=== PATIENT | female | born 1960 | race Caucasian/White ===

== ENCOUNTER 2019-09-18 08:15 | Day surgery (SDC) | payer BC ==
[~2019-09-18 08:15] MED LIST: Acetaminophen TAB* 325 MG PO PRN; Buffered Lidocaine 1% SYRIN* 1 ML/SYRINGE INTRADERM ONE
[2019-09-18] MEDS ORDERED: Povidone Iodine 5% OPTH* 30 ML BTL ONE (09:10)
[2019-09-18] MEDS ORDERED: Lidocaine 2% w/ EPI 1:200,000* 20 ML SDV VIAL ONE (09:10)
[2019-09-18] MEDS ORDERED: Phenylephrine OPHTH SOL 2.5%* 2 ML ONE (09:10)
[2019-09-18] MEDS ORDERED: Cyclopentolate 1% OPTH.SOL* 2 ML BTL ONE (09:10)
[2019-09-18] MEDS ORDERED: Ketorolac 0.5% OPHTH (NF) 0.5 % 5 ML BTL ONE (09:10)
[2019-09-18] MEDS ORDERED: Lidocaine 1% MPF ** 5 ML VIAL ONE (09:10)
[2019-09-18] MEDS ORDERED: Neomycin/Polymy/Dex OPTH.SUSP* MAXITROL 0.1% 5 ML ONE (09:10)
[2019-09-18] MEDS ORDERED: acetaZOLAMIDE TAB* 250 MG ONE (09:10)
[2019-09-18] MEDS ORDERED: Proparacaine 0.5% OPHTH.SOL* 15 ML BTL ONE (09:11)
[2019-09-18] MEDS ORDERED: fentaNYL* 50 MCG/ML 2 ML VIAL (100 MCG VIAL) ONE (10:18)
[2019-09-18] MEDS ORDERED: Midazolam* 1 MG/ML 2 ML VIAL (2 MG) ONE (10:18)
[2019-09-18 11:26] VITALS: BP 111/53
--- NOTE | 2019-09-18 15:24 | OP ---
DATE OF OPERATION: 09/18/2019 - [facility] DATE OF : 1960. SURGEON: Catrachito Hinton M.D. PREOPERATIVE DIAGNOSIS: Cataract right eye. POSTOPERATIVE DIAGNOSIS: Cataract right eye. OPERATIVE PROCEDURE: Extracapsular cataract extraction with intraocular lens implant right eye. DESCRIPTION OF PROCEDURE: The patient was brought to the operating room after being given 1/2% Alcaine with epinephrine drops in the preoperative area. The eye was prepped and draped in the usual sterile fashion. Sterile drape and eyelid speculum were placed. Again, topical 1/2% Alcaine with epinephrine was given. A paracentesis incision was made at the 9 o'clock position with the No.75 blade. Clear cornea incision 2.2 x 2.2-mm was created at the 12 o'clock position starting at the anterior limbus using the 2.2-mm keratome. The anterior chamber was irrigated with 0.4 mL of 1% non-preservative intracameral lidocaine and filled with DisCoVisc. A capsulorrhexis was completed using the cystotome and the Utrata forceps. Hydrodissection was performed with balanced salt solution. The lens nucleus was removed with the Phacoemulsification handpiece without incident. Cortex was removed with the irrigation-aspiration handpiece. The capsular bag was re-inflated using DisCoVisc and an SN60WF 6.5 implant was inserted with the shooter. The irrigation-aspiration handpiece was used to remove all residual DisCoVisc. The eye was refilled with balanced salt solution and the wound checked and found to be watertight. Topical Maxitrol drops were given. [id number]/[facility] #: [id number] [facility]
== END 2019-09-18 11:20 | disposition home or self-care (01) ==
LOC: OREAST 08:15
PROVIDERS: ATTEND Specialist
DX: H25.811 Combined forms of age-related cataract, right eye (principal); H44.23 Degenerative myopia, bilateral; E03.9 Hypothyroidism, unspecified; Z87.891 Personal history of nicotine dependence; F32.9 Major depressive disorder, single episode, unspecified
CPT/HCPCS: A9270-GY; J2250; J3010; V2632

== ENCOUNTER 2019-09-25 10:49 | Day surgery (SDC) | payer BC ==
[2019-09-25] MEDS ORDERED: Midazolam* 1 MG/ML 2 ML VIAL (2 MG) ONE (12:35)
[2019-09-25 14:07] VITALS: BP 111/61
[2019-09-25] MEDS ORDERED: Lidocaine 1% MPF ** 5 ML VIAL ONE (15:07)
[2019-09-25] MEDS ORDERED: Cyclopentolate 1% OPTH.SOL* 2 ML BTL ONE (15:07)
[2019-09-25] MEDS ORDERED: Phenylephrine OPHTH SOL 2.5%* 2 ML ONE (15:08)
[2019-09-25] MEDS ORDERED: Neomycin/Polymy/Dex OPTH.SUSP* MAXITROL 0.1% 5 ML ONE (15:08)
[2019-09-25] MEDS ORDERED: Ketorolac 0.5% OPHTH (NF) 0.5 % 5 ML BTL ONE (15:08)
[2019-09-25] MEDS ORDERED: Lidocaine 2% w/ EPI 1:200,000* 20 ML SDV VIAL ONE (15:08)
[2019-09-25] MEDS ORDERED: Proparacaine 0.5% OPHTH.SOL* 15 ML BTL ONE (15:08)
[2019-09-25] MEDS ORDERED: Povidone Iodine 5% OPTH* 30 ML BTL ONE (15:08)
--- NOTE | 2019-09-25 22:17 | OP ---
DATE OF OPERATION: 09/25/19 [facility] DATE OF : [birth year] SURGEON: Catrachito Hinton M.D. PREOPERATIVE DIAGNOSIS: Cataract, left eye. POSTOPERATIVE DIAGNOSIS: Cataract, left eye. OPERATIVE PROCEDURE: Extracapsular cataract extraction with intraocular lens implant, left eye. DESCRIPTION OF PROCEDURE: The patient was brought to the operating room after being given 1/2% Alcaine with epinephrine drops in the preoperative area. The eye was prepped and draped in the usual sterile fashion. Sterile drape and eyelid speculum were placed. Again, topical 1/2% Alcaine with epinephrine was given. A paracentesis incision was made at the 3 o'clock position with the No.75 blade. Clear cornea incision 2.2 x 2.2-mm was created at the 6 o'clock position starting at the anterior limbus using the 2.2-mm keratome. The anterior chamber was irrigated with 0.4 mL of 1% non-preservative intracameral lidocaine and filled with DisCoVisc. A capsulorrhexis was completed using the cystotome and the Utrata forceps. Hydrodissection was performed with balanced salt solution. The lens nucleus was removed with the Phacoemulsification handpiece without incident. Cortex was removed with the irrigation-aspiration handpiece. The capsular bag was re-inflated using DisCoVisc and an SN60WF 8.5 implant was inserted with the shooter. The irrigation-aspiration handpiece was used to remove all residual DisCoVisc. The eye was refilled with balanced salt solution and the wound checked and found to be watertight. Topical Maxitrol drops were given. [id number]/[facility] #: [id number] [facility]
== END 2019-09-25 13:56 | disposition home or self-care (01) ==
LOC: OREAST 10:49
PROVIDERS: ATTEND Specialist
DX: H25.812 Combined forms of age-related cataract, left eye (principal); H44.23 Degenerative myopia, bilateral; E03.9 Hypothyroidism, unspecified; F32.9 Major depressive disorder, single episode, unspecified
CPT/HCPCS: A9270-GY; J2250; V2632

== ENCOUNTER 2019-10-09 19:44 | Emergency (ER) | payer BC ==
--- NOTE | 2019-10-09 19:53 | ED ---
Abdominal Pain/Female - HPI Summary HPI Summary: Patient is a 59 y/o F presenting to the ED via EMS for a chief complaint of left flank abdominal pain that radiates to the lower back and began around 17: 00 on 10/09/19. Patient states that she was back home after a trip to [place] and was about to make pizza with her family when she suddenly felt left flank pain. She describes the pain as a constant cramping and sharp sensation that she rates as a 10/10 in severity. Prior to this episode of abdominal pain, she notes eating some pepperoni and drinking coffee. On EMS arrival, patient felt nauseous and was diaphoretic. Earlier in the day, patient states she had difficulty with urinary voiding and had a bowel movement that she describes as pale. Patient denies any fever, chills, chest pain, shortness of breath, bilateral LE edema, blood in the stool, hematuria, cough, or rhinorrhea. No aggravating or alleviating factors are reported. Recently, patient saw a homeopathic provider that did blood work and told her she had elevated folate levels. At that time, she was told she could possibly have an intestinal issue. Six years ago, patient reports changing her diet to exclude gluten and include raw and sprouted grains. PMHx is significant for appendicitis and thyroid problem for which she is on medication. PSHx is significant for cataract surgery and appendectomy. An allergy to Sulfa drugs is noted. - History of Current Complaint Stated Complaint: ABD PAIN PER EMS Hx Obtained From: Patient Onset/Duration: Sudden Onset, Still Present Timing: Constant Severity Initially: Severe Severity Currently: Severe Pain Intensity: 10 Pain Scale Used: 0-10 Numeric Location: Flank - Left Radiates: Yes Radiates to: Back - Lower Character: Sharp, Cramping Aggravating Factor(s): Nothing Alleviating Factor(s): Nothing Associated Signs and Symptoms: Positive: Diaphoresis, Back Pain - Lower, Nausea. Negative: Fever, Cough, Chest Pain, Blood in Stool Allergies/Adverse Reactions: Allergies Allergy/AdvReac Type Severity Reaction Status Date / Time bee venom protein (honey bee) Allergy Unknown Verified 10/09/19 19:53 Reaction Details Sulfa (Sulfonamide Allergy Rash Verified 10/09/19 19:53 Antibiotics) BANDAID Allergy Rash Uncoded 09/25/19 11:12 Home Medications: Home Medications Cholecalciferol (Vitamin D3) [Vitamin D3] 2,000 unit PO DAILY 10/09/19 [History Confirmed 10/09/19] L.acidoph,Paracasei, B.lactis [Probiotic] 1 cap PO DAILY 10/09/19 [History Confirmed 10/09/19] Liothyronine TAB* [Cytomel TAB*] 10 mcg PO QPM 10/09/19 [History Confirmed 10/09] Liothyronine TAB* [Cytomel TAB*] 15 mcg PO QAM 10/09/19 [History Confirmed 10/09] [place]-3/Dha/Epa/Fish Oil [Fish Oil 1,600 mg/5 ml Liquid] 10 ml PO DAILY [History Confirmed 10/09/19] Pancrelipase (NF) [Creon (NF)] 24,000 units PO TID WITH MEALS 10/09/19 [History Confirmed 10/09/19] Prasterone (Dhea)/Calcium Carb [Dhea] 10 mg PO DAILY 10/09/19 [History Confirmed 10/09/19] Vitamin E CAP* 400 unit PO DAILY 10/09/19 [History Confirmed 10/09/19] Zinc Amino Acid Chelate [Zinc] 50 mg PO DAILY 10/09/19 [History Confirmed ] PMH/Surg Hx/FS Hx/Imm Hx Previously Healthy: Yes Endocrine/Hematology History: Reports: Hx Thyroid Disease - UNDERACTIVE THYROID - ON MEDICATION FOR Cardiovascular History: Denies: Other Cardiovascular Problems/Disorders Respiratory History: Denies: Other Respiratory Problems/Disorders GI History: Reports: Hx Irritable Bowel, Other GI Disorders - HX OF HYPOGLYCEMIA , Appendicitis History: Denies: Other Problems/Disorders Musculoskeletal History: Reports: Hx Arthritis - HANDS,, Hx Tendonitis - RIGHT THUMB Denies: Other Musculoskeletal History Sensory History: Reports: Hx Cataracts - BILATERAL, Hx Contacts or Glasses - INSTRUCTS GIVEN Denies: Hx Legally Blind, Hx Deafness, Hx Hearing Aid Opthamlomology History: Reports: Hx Cataracts - BILATERAL, Hx Contacts or Glasses - INSTRUCTS GIVEN Denies: Hx Legally Blind EENT History: Denies: Hx Deafness Neurological History: Denies: Other Neuro Impairments/Disorders - Surgical History Surgical History: Yes Surgery Procedure, Year, and Place: CARPAL TUNNEL RELEASE BILATERAL; C-sections x2; appendectomy age 25. M[facility]ANOMA LEFT LEG Hx Anesthesia Reactions: No Infectious Disease History: Yes Infectious Disease History: Reports: Hx Hepatitis - Hep A as child - Family History Known Family History: Negative: Diabetes, Renal Disease - Social History Occupation: Unemployed Lives: With Family Alcohol Use: None Hx Substance Use: No Substance Use Type: Reports: None Hx Tobacco Use: Yes Smoking Status (MU): Former Smoker Amount Used/How Often: UP TO 1/2 PPD X 10 YEARS Have You Smoked in the Last Year: No Review of Systems Positive: Skin Diaphoresis. Negative: Fever, Chills Negative: Nasal Discharge Negative: Chest Pain Negative: Shortness Of Breath, Cough Positive: Abdominal Pain - Left flank, Nausea, Other - Positive pale bowel movement; negative blood in stool Positive: flank pain - Left, other - Positive difficulty with urinary voiding. Negative: hematuria Positive: Myalgia - Lower back. Negative: Edema - Bilateral LE All Other Systems Reviewed And Are Negative: Yes Physical Exam - Summary Physical Exam Summary: Constitutional: Well-developed, Well-nourished, Alert. (-) Distressed. Appears uncomfortable. Skin: Warm, Dry HENT: Normocephalic; Atraumatic Eyes: Conjunctiva normal Neck: Musculoskeletal ROM normal neck. (-) JVD, (-) Stridor, (-) Tracheal deviation Cardio: Rhythm regular, rate normal, Heart sounds normal; Intact distal pulses; The pedal pulses are 2+ and symmetric. Radial pulses are 2+ and symmetric. (-) Murmur Pulmonary/Chest wall: Effort normal. (-) Respiratory distress, (-) Wheezes, (-) Rales Abd: Soft, (-) Distension, (-) Guarding, (-) Rebound. Left flank tenderness, left mid-abdominal tenderness Musculoskeletal: (-) Edema. Positive left CVA tenderness Lymph: (-) Cervical adenopathy Neuro: Alert, Oriented x3 Psych: Mood and affect Normal Triage Information Reviewed: Yes Vital Signs Reviewed: Yes Procedures - Sedation Patient Received Moderate/Deep Sedation with Procedure: No Diagnostics - Laboratory Result Diagrams: 10/09/19 20:03 10/09/19 20:03 Lab Statement: Any lab studies that have been ordered have been reviewed, and results considered in the medical decision making process. - CT Abdomen/Pelvis CT CT Interpretation Completed By: Radiologist Summary of CT Findings: Abdomen/Pelvis CT IMPRESSION: 1. There is a 7 mm calculus in the proximal left ureter with mild left obstructive uropathy. 2. There is mild colonic diverticulosis without evidence for acute diverticulitis. Reviewed by Dr. Doshi. Abdominal Pain Fem Course/Dx - Course Course Of Treatment: Patient is a 59 y/o F presenting to the ED via EMS for a chief complaint of left flank abdominal pain that radiates to the lower back and began around 17:00 on 10/09/19. Patient states that she was back home after a trip to [place] and was about to make pizza with her family when she suddenly felt left flank pain. She describes the pain as a constant cramping and sharp sensation that she rates as a 10/10 in severity. Prior to this episode of abdominal pain, she notes eating some pepperoni and drinking coffee. On EMS arrival, patient felt nauseous and was diaphoretic. Earlier in the day, patient states she had difficulty with urinary voiding and had a bowel movement that she describes as pale. Patient denies any fever, chills, chest pain, shortness of breath, bilateral LE edema, blood in the stool, hematuria, cough, or rhinorrhea. Recently, patient saw a homeopathic provider that did blood work and told her she had elevated folate levels. PMHx is significant for appendicitis and thyroid problem for which she is on medication. PSHx is significant for cataract surgery and appendectomy. On exam, left flank tenderness, left mid-abdominal tenderness, positive left CVA tenderness, patient appears uncomfortable. In the ED course, patient was given Toradol 30 mg IV PUSH, morphine 4 mg IV, Zofran 4 mg IV, Percocet 2 tab PO, Flomax 0.4 mg PO, and IV fluids. Laboratory abnormal findings: MPV 10.6, creatinine 1.00, glucose 106, urine ketones 1+, and urine ascorbic acid present. Abdomen/Pelvis CT IMPRESSION: 1. There is a 7 mm calculus in the proximal left ureter with mild left obstructive uropathy. 2. There is mild colonic diverticulosis without evidence for acute diverticulitis. At 23:20, I discussed the patients case with Dr. Whitley who states the patient can be discharged if she is feeling better. Patient will be discharged with a diagnosis of kidney stones. Follow up with PCP in 1 day. - Diagnoses Provider Diagnoses: Kidney stones - Provider Notifications Discussed Care Of Patient With: Sly Whitley - At 23:20, I discussed the patients case with Dr. Whitley who states the patient can be discharged if she is feeling better. Time Discussed With Above Provider: 23:20 Discharge ED - Sign-Out/Discharge Documenting (check all that apply): Patient Departure - Discharge - Discharge Plan Condition: Stable Disposition: HOME Prescriptions: Ondansetron TAB* [Zofran 4 MG Tab*] 4 mg PO Q6H PRN #20 tab PRN Reason: Nausea oxyCODONE/Acetamin 5/325 MG* [Percocet 5/325 TAB*] 1 tab PO Q4H PRN #15 tab MDD 6 PRN Reason: Pain - Moderate Tamsulosin CAP* [Flomax CAP*] 0.4 mg PO DAILY #10 cap Patient Education Materials: Kidney Stones (ED) Print Language: CROATIAN Referrals: Mercedez MARTINEZ,Al Velazquez [Primary Care Provider] - Sly Whitley MD [Medical Doctor] - Additional Instructions: Follow-up with Dr. Whitley in the morning. - Billing Disposition and Condition Condition: STABLE Disposition: Home - Attestation Statements Document Initiated by Scribe: Yes Documenting Scribe: Venessa Melara Provider For Whom Scribe is Documenting (Include Credential): Pati Seaman MD Scribe Attestation: IVenessa, scribed for Pati Doshi MD on 10/10/19 at 0130. Scribe Documentation Reviewed: Yes Provider Attestation: The documentation as recorded by the Venesas zheng accurately reflects the service I personally performed and the decisions made by me, Pati Doshi MD Status of Scribe Document: Viewed
[2019-10-09] MEDS ORDERED: Morphine 4 MG/ML VIAL (1 ml) 4 MG/ML VIAL IV ONE (19:57)
[2019-10-09] MEDS ORDERED: Ketorolac INJ* 30 MG/ML 1 ML VIAL IV PUSH ONE (19:57)
[2019-10-09] MEDS ORDERED: Ondansetron INJ* 2 MG/ML VIAL IV ONE (19:57)
[2019-10-09] MEDS ORDERED: NS 0.9% 1000 ML** 1,000 ML IV ONE (19:57)
--- OUTSIDE RECORDS SUMMARY | 2019-10-09 19:59 | XMS REPORT | Continuity of Care Document ---
:1960 External Reference #:[id number] Author Name Catrachito Hinton M.D. Address [address] [place] [address] Care Team Providers Name Role Phone Al Newsome M.D. - Family Medicine Care Team Information Instrument Mechanics Supervisor [phone] Brad Lo O.D. - Systems Development Manager Care Team Information Instrument Mechanics Supervisor Problems Active Problems Provider Date Hyperthyroidism Catrachito Hinton M.D. Onset: 08/20/2019 Presence of intraocular lens Catrachito Hinton M.D. Onset: 09/19/2019 Degenerative progressive high myopia Catrachito Hinton M.D. Onset: 08/20/2019 Combined form of senile cataract Catrachito Hinton M.D. Onset: 08/20/2019 Social History Type Date Description Comments Sex Unknown ETOH Use Never used alcohol Tobacco Use Start: Unknown Patient has never smoked Recreational Drug Use Former Drug User Smoking Status Reviewed: 09/26/19 Patient has never smoked Allergies, Adverse Reactions, Alerts Active Allergies Reaction Severity Comments Date Sulfalene Sulfa Drugs 08/20/2019 Medications Active Medications SIG Qnty Indications Ordering Date Provider Artificial Tears Catrachito Hinton, 09/18/2019 0.1-0.3% M.D. Solution Ciprofloxacin HCL instill one drop in 5ml Catrachito Hinton, 08/29/2019 0.3% the Left eye three M.D. Solution times a day, start the day before surgery Ketorolac Tromethamine use one drop in the 10ml Catrachito Hinton, 2018 right eye three M.D. 0.5% Solution times a day, start the day before surgery Prednisolone Acetate 1 drops right eye 5ml Catrachito Hinton, 08/29/2019 1% three times a day. M.D. Suspension taper as directed Benadryl Allergy every day Unknown 25mg Capsules Vitamin E Unknown Zinc picolinate Unknown 50mg Tablets Probiotic Unknown Capsules Berberine Complex Unknown [id number] Capsules Pancreatic Enzymes Unknown Progesterone lozenge Unknown Vitamin C Unknown W/Quercetin/Essig Bioflavanoids [phone] Capsules Calcium 600/Magnesium Unknown 300/Vitamin D 200-100-33.3mg-mg-Unit Capsules Dhea Unknown 10mg Capsules Iodine Unknown Crystals Vitamin K2 Unknown 100mcg Capsules Vitamin D Unknown 50mcg (2000 Ut) Capsules Cod Liver Oil Unknown 10Minim Capsules Estradiol Apply 1 Patch To Unknown 0.05mg/24HR The Skin Once Patches Weekly Weekly Liothyronine Sodium Take 3 Tablets By Unknown 5mcg Mouth Every Morning Tablets And Take 2 Tablets By Mouth Every Evening Immunizations Description No Information Available Vital Signs Description No Information Available Results Description No Information Available Procedures Date Code Description Status 09/18/2019 65187 Extracapsular Cataract Extraction W/Intraocular Lens Completed 08/29/2019 68898 Ophthalmic Biometry Completed 08/29/2019 29478 Ophthalmic Biometry Completed 08/29/2019 07827 Scanning Computerized Opthalmic Diagnostic Posterior Seg Completed Retina 08/29/2019 66784 Est Patient Intermediate Exam Completed 08/20/2019 26066 New Patient Comprehensive Exam Completed Medical Devices Description No Information Available Encounters Description No Information Available Assessments Date Code Description Provider 09/26/2019 Z96.1 Presence of intraocular lens Catrachito Hinton M.D. 09/26/2019 H44.23 Degenerative myopia, bilateral Catrachito Hinton M.D. 09/19/2019 H25.812 Combined forms of age-related cataract, left Catrachito Hinton M.D. eye 09/19/2019 H44.23 Degenerative myopia, bilateral Catrachito Hinton M.D. 09/19/2019 Z96.1 Presence of intraocular lens Catrachito Hinton M.D. 09/18/2019 H25.811 Combined forms of age-related cataract, Catrachito Hinton M.D. right eye 08/29/2019 H25.811 Combined forms of age-related cataract, Catrachito Hinton M.D. right eye 08/29/2019 H44.23 Degenerative myopia, bilateral Catrachito Hinton M.D. 08/29/2019 H25.812 Combined forms of age-related cataract, left Catrachito Hinton M.D. eye 08/20/2019 H25.813 Combined forms of age-related cataract, Catrachito Hinton M.D. bilateral 08/20/2019 H44.23 Degenerative myopia, bilateral Catrachito Hinton M.D. Plan of Treatment Future Appointment(s):02/04/2020 9:45 am - Catrachito Hinton M.D. at Catrachito Hinton MD, 09/26/2019 - Catrachito Hinton M.D.Z96.1 Presence of intraocular lensComments:Smoking can increase the risk of developing or worsening any eye related disease, as well as affect your overall health. If you are a smoker, we strongly recommend that you quit.If you are not a smoker, we strongly recommend that you do not start. The artifical lens implant in your left eye appears to be stable. Since this is the first day after surgery, your left eye is still dilated and the vision will still be slightly blurry. The dilation will go down over the next day or two. Continue taking your eye drops as directed on the surgical calendar. If you have any questions, please call our office.H44.23 Degenerative myopia, bilateral Functional Status Description No Information Available Mental Status Description No Information Available Referrals Description No Information Available
--- OUTSIDE RECORDS SUMMARY | 2019-10-09 19:59 | XMS REPORT | Continuity of Care Document ---
:1960 External Reference #:[id number] Author Name Catrachito Hinton M.D. Address [address] [place] [address] Care Team Providers Name Role Phone Al Newsome M.D. - Family Medicine Care Team Information Lip Of Shank Cutter [phone] Brad Lo O.D. - Internet Assessor Care Team Information Lip Of Shank Cutter Problems Active Problems Provider Date Hyperthyroidism Catrachito Hinton M.D. Onset: 08/20/2019 Degenerative progressive high myopia Catrachito Hinton M.D. Onset: 08/20/2019 Combined form of senile cataract Catrachito Hinton M.D. Onset: 08/20/2019 Social History Type Date Description Comments Sex Unknown ETOH Use Never used alcohol Tobacco Use Start: Unknown Patient has never smoked Recreational Drug Use Former Drug User Smoking Status Reviewed: 08/20/19 Patient has never smoked Allergies, Adverse Reactions, Alerts Active Allergies Reaction Severity Comments Date Sulfalene 08/20/2019 Medications Active Medications SIG Qnty Indications Ordering Provider Date Liothyronine Sodium Take 3 Tablets By Unknown 5mcg Mouth Every Tablets Morning And Take 2 Tablets By Mouth Every Evening Estradiol Apply 1 Patch To Unknown 0.05mg/24HR The Skin Once Patches Weekly Weekly Vitamin C 1 by mouth every Unknown 500mg Capsules day Calcium 500 + D 2 every day Unknown [id number] Tablets Cod Liver Oil Unknown 10Minim Capsules Vitamin D Unknown 50mcg (2000 Ut) Capsules Vitamin K2 Unknown 100mcg Capsules Iodine Unknown Crystals Dhea Unknown 10mg Capsules Immunizations Description No Information Available Vital Signs Description No Information Available Results Description No Information Available Procedures Description No Information Available Medical Devices Description No Information Available Encounters Description No Information Available Assessments Date Code Description Provider 08/20/2019 H25.813 Combined forms of age-related cataract, Catrachito Hinton M.D. bilateral 08/20/2019 H44.23 Degenerative myopia, bilateral Catrachito Hinton M.D. Plan of Treatment 08/20/2019 - Catrachito Hinton M.D.H25.813 Combined forms of age-related cataract , bilateralComments:Smoking can increase the risk of developing or worsening any eye related disease, as well as affect your overall health. If you are a smoker, we strongly recommend that you quit.If you are not a smoker, we strongly recommend that you do not start. You have been diagnosed with cataracts. They are limiting your vision, and I am unable to improve you with new glasses. Our next step is to schedule Cataract surgery and all necessary appointments, which Prudence will do for you. We recommend that you write down any questions you may have and bring them to your preoperative appointment so that Dr. Smith answer them for you. If you have any questions or concerns, you can reach Prudence or Domonique at .Follow up:For preop exam before surgery.H44.23 Degenerative myopia, bilateral Functional Status Description No Information Available Mental Status Description No Information Available Referrals Description No Information Available
--- OUTSIDE RECORDS SUMMARY | 2019-10-09 19:59 | XMS REPORT | Continuity of Care Document ---
:1960 Author Organization 0001 - [facility] Address [address] [place] [address] Phone Care Team Providers Name Role Phone ALLAN FELICIANO MD Unavailable Unavailable Allergies, Adverse Reactions, Alerts Substance Reaction Status trimethoprim Rash Active sulfamethoxazole Rash Active codeine Active Medications Medication Instructions Dosage Effective Status Comments Dates (start - stop) diphenhydramine 25 take 1 capsule by 25 MG - Active mg capsule oral route every evening as needed Quercetin 300-500mg - Active ORAL TABLET Calcium 500 With D take 1 by Oral 1 - Active 500 mg (1,250 route every day mg)-400 unit Tab Acidophilus Cap 1 cap daily - Active echinacea 400 mg Cap 2 times daily - Active COD LIVER OIL Not Available - Active (unknown strength) Vitamin D3 5,000 take 1 tablet by 1 tablet - Active unit tablet oral route every day vitamin K2 40 mcg - Active tablet Lugols 5 % oral - Active solution progesterone (bulk) compounded - Active 100 % powder lozenge 50mg once daily. liothyronine 5 mcg take 1 tablet by 5 MCG - Active tablet oral route 2 times every day estriol (bulk) 100 % compounded - Active powder estriol vagional gel estradiol 0.025 apply 1 patch by 1.00 patch - Active mg/24 hr semiweekly transdermal route transdermal patch 2 times every week DHEA 25 mg capsule - Active zinc picolinate - Active (bulk) powder blaire root (bulk) - Active powder diclofenac sodium 50 take 1 tablet by 50 MG - No Longer mg tablet,delayed oral route 2 Active release times every day Chondroitin Sulfate - No Longer 250 mg Cap Active Fitzhugh 3 Fish Oil 684 - No Longer mg-1,200 mg Cap, Active Delayed Release multivitamin Tab Take one tablet - No Longer by mouth daily Active Ostera 500 unit-500 - No Longer mcg-90 mg-370 mg Active tablet Problems Condition Effective Dates (start - stop) Clinical Status Preoperative examination Age-related cataract of both eyes, unspecified age-related cataract type Acquired hypothyroidism Post-menopausal bleeding Vulvar ulcer Left hip pain Encounter for general adult medical examination without abnormal findings Piriformis muscle pain Piriformis syndrome of left side Unspecified asthma with (acute) exacerbation Other fatigue Hypoglycemia, unspecified Other fatigue - Hypoglycemia, unspecified - Sprain of right ankle, unspecified ligament, subsequent encounter Fatigue Annual physical exam Fatigue / Malaise - Routine Medical Exam - Routine Medical Exam - Sinusitis, Acute Pharyngitis, Acute Pharyngitis, Acute Urinary Tract Infection Hypoglycemia NOS - Osteoarthrosis, generalized, - multiple sites Hypoglycemia NOS - Sinusitis, Acute Acute Pharyngitis, Acute Acute Pharyngitis, Acute Acute Pharyngitis, acute Acute Sinusitis, acute NOS Acute Sinusitis, acute NOS Acute Sinusitis, acute NOS Acute Asthma NOS w/acute exacerbation Acute Disorder, depressive NEC Acute Sinusitis, acute NOS Acute Disorder, depressive NEC Chronic Disorder, depressive NEC Good control Irregular menstruation Poorly controlled Herpes simplex w/complication NOS Recurrent Lumbago - Subacute Malaise and fatigue NEC Subacute Disorder, muscle/ligament NOS Subacute Procedures Procedure Date Office/outpatient visit,est, mod Results Test Name Date and Time Measure Units Reference Range Abnormal Flag Status Comments Unknown Encounters Encounter Practice Location Reason(s) Diagnoses Date Provider Providers Description For Visit Copied on Encounter Office/outpa [facility] - [facility] Primary pre-op Preoperative Aug- BRADEN edwards [facility], [facility] evaluation examinationAge 7-201 [facility] visit,est, 33-57 [place] (chief -related 9 PC 119 mod Ravi complaint)c cataract of [facility], ataract both eyes, [facility] (chief unspecified [place], [place], complaint) [place], [address]. [address], [place] cataract tel: tel: typeAcquired [phone] hypothyroidism 0001 - [facility] Post-menopausa Apr- [facility], Urogynecology l RICE bleedingVulvar 7 NIA. Ravi ulcer [address] [facility], [address], [place], [place], [place], [address], [place], [place]: [place], [phone]. [phone] tel: [phone] 0001 - [facility] Primary Sep-0 LORD FELICIA. S Inc, Care [place] [facility] 119 33[address], [facility] [place], [facility], [address]. [place], [place], tel: [phone], [place] [id number] tel: [phone] 0001 - [facility] Primary Left hip pain Aug- SKIFF S [facility], [facility] [place] ALLAN. [facility] [place] 6 PC 119 [facility], [place], [address]. [address], [place] tel: tel: [phone] 0001 - [facility] Primary Encounter for Feb- [facility], [facility] [place] general adult ALLAN. [facility] [place] medical 6 PC 119 [place] examination [facility], without [facility] abnormal [place], [place], [place], [address]. [address], [place] rmis muscle tel: tel: painPiriformis [phone] syndrome of left side 0001 - [facility] Primary Unspecified Feb- [facility], [facility] [place] asthma with ALLAN. [facility] 3357 (acute) 6 PC 119 [facility], her [facility] fatigueHypogly [place], [place], [place], [address]. [address], [place] unspecified tel: tel: [phone] 0001 - S Primary Other Bertrand-0 SAUCEDO S Inc, Care [place] fatigueHypogly ALTAGRACIA. 33-57 [place], [address] [place] [address], [facility], Street, [facility], [address]. [place], [place], tel: [phone], [place] [id number] tel: [phone] 0001 - [facility] Primary Nov-1 [facility] Inc, [place] ALLAN. [place] [address] [place] 5 [address] 119 [facility], Street, [facility], [place], [place], [address]. [address], [place] tel: tel: [phone] 0001 - [facility] Primary Sprain of Jul- [facility] Inc, [place] right ankle, ALLAN. [facility] [address] unspecified 5 PC 119 [facility], [facility], Street, subsequent [facility], [place], [place], [address]. [address], [place] tel: tel: [phone] 0001 - [facility] Primary FatigueAnnual Dec-0 REGINE S Inc, Care [place] physical NENITA. 54 33-57 examFatigue / 1 [facility], [place] MalaiseRoutine [facility], [place], [address]. Kiran tel:+ [place], [place], [phone], [place] tel: [phone] 2019 - [facility] Primary Routine Mar-2 REGINE Referring S Inc, Care [place] Medical NENITA. 54 Provider: 33-57 ExamSinusitis, 1 [facility], [facility] AcuteSinusitis [facility], , [place], [address]. 54 [facility] tel:+ , [place], [place], [phone] [place], [address], [place], [address]. tel: tel:[phone] 0001 - [facility] Primary Pharyngitis, Dec-1 REGINE Referring S Inc, Care [place] AcutePharyngit 5-201 NENITA. 54 Provider: 33 is, 0 [facility] Ravi AcutePharyngit [place], [place], [address]. 54 [facility] AcutePharyngit tel:+ [place], [place], , Acute [id number] [place], [address], [place], [address]. tel: tel: [phone] 0001 - S Primary Nov-1 CANDOR S Inc, Care [place] 5-201 NURSE. . 33 0 [place], [address], [place] tel: [phone] 0001 - S Primary Urinary Tract Sep-1 GLOSENGER Referring S Inc, Care [place] Infection 7-201 CHARLETTE. 59 Provider: 33 0 [facility], [facility], [place], 59 [facility], [address]. [place], [place], tel:+ [place], [address], [id number] [place], [address]. tel: tel: [phone] 0001 - S Primary Pharyngitis, Nov-2 CANDOR S Inc, Care [place] acute 4-200 NURSE. . 8 [place], [address], [place] tel: [phone] 0001 - S Primary Apr-2 REGINE S Inc, Care [place] 3-200 NENITA. 54 [address] [place], [address]. Kiran tel:+ [place], [place], [phone], [place] tel:+ [phone] 0001 - S Primary Disorder, Mar-2 REGINE S Inc, Care [place] depressive NEC 1-200 NENITA. 54 [address] [place], [address]. Kiran tel: [place], [place], [phone], [place] tel:+ [phone] 0001 - S Primary Sinusitis, Nov-1 REGINE Referring S Inc, Care [place] acute NOS 3-200 NENITA. 54 Provider: 33 7 [facility] NENITA Gonsalesor, [place], [address]. 54 [facility] tel: [place], [place], [phone] [place], [address], [facility], [address]. tel: tel: [phone] 0001 - [facility] Primary Irregular GROMNIAK S Inc, Care [place] menstruation 5-200 KHALIDA. 7 SPED [place] [address] [place], [place], [place] [address], , [place], tel: [phone] tel:[phone] 0001 - [facility] Primary Sinusitis, REGINE Referring S Inc, Care [place] acute NOS 1-200 NENITA. 54 Provider: 7 [facility], NENITA Gonsalesor, [place], [address]. 54 [facility] tel: [place], [place], [phone] [place], [address], [facility], [address]. tel: tel: [phone] 0001 - [facility] Primary Dec- CANDOR S Inc, Care [place] 8-200 NURSE. . 6 [place], [address], [place] tel: [phone] 2019 - [facility] Primary LumbagoHerpes Jul- SKIFF S Inc, Care [place] simplex 1-200 ALLAN. [facility] w/complication 6 PC [address] [place], [address]. [address], [place] tel: tel: [phone] 2019 - [facility] Primary Malaise and [facility] Inc, Care [place] fatigue NEC 2-200 ALLAN. [facility] 6 [address] [place], [address]. [address], [place] tel: tel: [phone] 0001 - [facility] Primary Sinusitis, SKIFF S Inc, Care [place] acute 6-200 ALLAN. [facility] 33-57 NOSAsthma NOS 6 PC 119 Ravi w/acute [facility], [place], exacerbation [place], [place], [address]. [address], [place] tel: tel:+ [phone] 0001 - S Primary Disorder, Octaviano- REGINE [employer] Inc, Care [place] depressive NEC 6-200 NENITA. 54 33-57 6 [place], [address]. Kiran tel:+ [place], [place], [phone], [place] tel:+ [phone] 0001 - S Primary Disorder, Sep- REGINE [employer] Inc, Care [place] depressive NEC 1-200 NENITA. 54 33-57 6 [place], [address]. Kiran tel:+ [place], [place], [phone], [place] tel: [phone] 0001 - [facility] Primary Sinusitis, Aug- REGINE S Inc, Care [place] acute NOS 3-200 NENITA. 54 33-57 [address] [place], [address]. Kiran tel: [place], [place], [phone], [place] tel: [phone] 0001 - [facility] Primary Hypoglycemia Sep-2 IPDIAS Inc, Care [place] NOSOsteoarthro 0-200 ALLAN. [facility] 33-57 sis, 5 PC 119 Ravi generalized, [facility], Street, multiple [facility] sitesHypoglyce [place], [place], [facility], [address]. [address], [place] NOSDisorder, tel: tel: muscle/ligamen [phone] t NOS Family History Family Member Diagnosis Age At Onset Unknown Immunizations Vaccine Date Status Comments TDAP (Boostrix or Adacel) administered Source: New Immunization Record Fluvirin Syringe(Gap PEDS 4+ administered Source: New Immunization yrs & Women Record flu (split) (3 yrs or older) administered Source: New Immunization 0.5 mL IM with preservatives Record flu (split) (3 yrs or older) administered Source: New Immunization Record Td (adult) administered Note: Abstracted -05/31/2005 ; Source: New Immunization Record flu (split) (3 yrs or older) administered Note: Abstracted - ; Source: New Immunization Record flu (split) (3 yrs or older) administered Note: Abstracted - ; Source: New Immunization Record MMR administered Note: Abstracted -05/31/2005 ; Source: New Immunization Record MMR administered Note: Abstracted -05/31/2005 ; Source: New Immunization Record Td (adult) administered Note: Abstracted 05/31/2005 ; Source: New Immunization Record flu (split) (3 yrs or older) cancelled Source: New Immunization 0.5 mL IM with preservatives Record Payers Payer name Insurance type Covered alliance party ID Authorization(s) [facility] [id number] [facility] [id number] Social History Type Description Quantity Date Captured Comments Alcohol Use Details No Caffeine Use Details tea and coffee 3 cups per day Tobacco Use Status Ex-cigarette smoker Smoking Status Former smoker Smoking Tobacco Use Cigarette: Age Stopped: 35, Years Used 4 Cigarette: 0.5 Packs per day, Pack Year: 2 Details Vital Signs Date / Height Weight BMI Pulse Blood Temperature Respiratory Body Head BMI Time: Rate Pressure Rate Surface Circumference percentile Area 63.00 158.29 28.0 61 118/75 98.20 F 18 /min 1.79 -2019 in lbs 4 /min mm[Hg] meter(2) 8:55 kg/m AM eter (2) Chief Complaint And Reason For Visit Most recent encounter only, dated '09/06/2019 08:43'. pre-op evaluation ( chief complaint). Description: Requesting Surgeon: HUSEYIN WILLAMS MD, Date of Procedure: 09/18/2019, Procedure: Cataract, Problem: cataract, Indication: General Medical Assessment,Hospital: [facility] (chief complaint). Description: patient presents for pre-op evaluation for cataract surgery. patient is having R) eye done on 09/18/19 and L) eye 09/25/18. Reason For Referral Reason For Referral Unknown Plan Of Care Date Type Action Status Referral Referred To: ordered HUMBERTO PINA MD [address] [place] [address] [place], [address] [phone] Ordered: Referrals: Orthopedic Surgery. HUMBERTO PINA MD. Evaluate and treat Appointment date/timeframe: 04/25/2016 Date Type Problem Goal Intervention Status Start Date Unknown History Of Present Illness Encounter Date Complaint History Of Present Illness pre-op evaluation Requesting Surgeon: HUSEYIN WILLAMS MD, Date of Procedure: 09/18/2019, Procedure: Cataract, Problem: cataract, Indication: General Medical Assessment, Hospital: [facility] cataract patient presents for pre-op evaluation for cataract surgery. patient is having R) eye done on 09/18/19 and L) eye 09/25/18. Functional Status Encounter Date Functional Assessment Cognitive Assessment N/A Orientation - Oriented to time, place, person, situation. Medications Administered Medication Instructions Dosage Effective Dates (start - stop) Status Comments Drug Treatment Unknown Instructions Date Instruction Additional Information Scheduled for bilateral cataract Related to Age-related cataract of extractions. both eyes, unspecified age-related cataract type Continue the current dose of thyroid Related to Acquired hypothyroidism replacement. NO contraindication to proceeding with Related to Preoperative examination cataract extraction and lens implant. PMB several months ago, thin stripe Related to Post-menopausal bleeding onUS- endometrial bx done- if benign rec no further treatment. If bleeding recurrant RTO to check where blood coming fromHSV culture done Stretch the piriformis muscle when the Related to Piriformis muscle pain thigh pain returns Do exercises for retraining the ankle Related to Sprain of right ankle, and strengthening. unspecified ligament, subsequent encounter
--- OUTSIDE RECORDS SUMMARY | 2019-10-09 19:59 | XMS REPORT | Continuity of Care Document ---
:1960 External Reference #:[id number] Author Name Catrachito Hinton M.D. Address [address] [place] [address] Care Team Providers Name Role Phone Al Newsome M.D. - Family Medicine Care Team Information Chemical Engineering Intern [phone] Brad Lo O.D. - Plant Operations Coordinator Care Team Information Chemical Engineering Intern [phone] Problems Active Problems Provider Date Hyperthyroidism Catrachito Hinton M.D. Onset: 08/20/2019 Degenerative progressive high myopia Catrachito Hinton M.D. Onset: 08/20/2019 Combined form of senile cataract Catrachito Hinton M.D. Onset: 08/20/2019 Social History Type Date Description Comments Sex Unknown ETOH Use Never used alcohol Tobacco Use Start: Unknown Patient has never smoked Recreational Drug Use Former Drug User Smoking Status Reviewed: 08/29/19 Patient has never smoked Allergies, Adverse Reactions, Alerts Active Allergies Reaction Severity Comments Date Sulfalene Sulfa Drugs 08/20/2019 Medications Active Medications SIG Qnty Indications Ordering Date Provider Ciprofloxacin HCL instill one drop in 5ml Catrachito Hinton, 08/29/2019 0.3% the right eye three M.D. Solution times a day, [...] Tablets Probiotic Unknown Capsules Berberine Complex Unknown [phone] Capsules Pancreatic Enzymes Unknown Progesterone lozenge Unknown Vitamin C Unknown W/Quercetin/[place] Bioflavanoids [phone] Capsules Calcium 600/Magnesium Unknown 300/Vitamin D 200-100-33.3mg-mg-Unit [...] Information Available Procedures Date Code Description Status 08/20/2019 93634 New Patient Comprehensive Exam Completed Medical Devices Description No Information Available Encounters Description No Information Available Assessments Date Code Description Provider 08/29/2019 H25.811 Combined forms of age-related cataract, Catrachito Hinton M.D. right eye 08/29/2019 H44.23 Degenerative myopia, bilateral Catrachito Hinton M.D. 08/29/2019 H25.812 Combined forms of age-related cataract, left Catrachito Hinton M.D. eye 08/20/2019 H25.813 Combined forms of age-related cataract, Catrachito Hinton M.D. bilateral 08/20/2019 H44.23 Degenerative myopia, bilateral Catrachito Hinton M.D. Plan of Treatment Future Appointment(s):09/26/2019 10:00 am - Catrachito Hinton M.D. at Catrachito Hinton MD, 09/25/2019 7:00 am - Catrachito Hinton M.D. at Catrachito Hinton MD, 09/19/2019 8:45 am - Catrachito Hinton M.D. at Catrachito Hinton MD, pc2019 7:00 am - Catrachito Hinton M.D. at Catrachito Hinton MD, 08/29/2019 - Catrachito Hinton M.D.H25.811 Combined forms of age-related cataract, right eyeComments:Smoking can increase the risk of developing or worsening any eye related disease, as well as affect your overall health. If you are a smoker, we strongly recommend that you quit.If you are not a smoker, we strongly recommend that you do not start. Dense cataract in the right eye.Follow up:For surgery. Please keep post op appointments as scheduled.DFE/IOPH44.23 Degenerative myopia, bilateralFollow up:4 Month Follow Up DFEH25.812 Combined forms of age-related cataract, left eye Functional Status Description No Information Available Mental Status Description No Information Available Referrals Description No Information Available
--- OUTSIDE RECORDS SUMMARY | 2019-10-09 19:59 | XMS REPORT | Continuity of Care Document ---
:1960 External Reference #:[id number] Author Name Catrachito Hinton M.D. Address [address] [place] [address] Care Team Providers Name Role Phone Al Newsome M.D. - Family Medicine Care Team Information Sprinkler Fitter Apprentice Brad Lo O.D. - Software Performance Engineer Care Team Information Sprinkler Fitter Apprentice Problems Active Problems Provider Date Hyperthyroidism Catrachito [...] Use Former Drug User Smoking Status Reviewed: 09/19/19 Patient has never smoked Allergies, Adverse Reactions, [...] Tablets Probiotic Unknown Capsules Berberine Complex Unknown [phone] Capsules Pancreatic Enzymes Unknown Progesterone lozenge Unknown Vitamin C Unknown W/Quercetin/[place] Bioflavanoids [phone] Capsules Calcium 600/Magnesium Unknown 300/Vitamin D 200-100-33.3mg-mg-Unit [...] Information Available Procedures Date Code Description Status 08/29/2019 76190 Ophthalmic Biometry Completed 08/29/2019 78764 Ophthalmic Biometry Completed 08/29/2019 72672 Scanning Computerized Opthalmic Diagnostic Posterior Seg Completed Retina 08/29/2019 01765 Est Patient Intermediate Exam Completed 08/20/2019 03977 New Patient Comprehensive Exam Completed Medical Devices Description No Information Available Encounters Description No Information Available Assessments Date Code Description Provider 09/19/2019 H25.812 Combined forms of age-related cataract, left Catrachito Hinton M.D. eye 09/19/2019 H44.23 Degenerative myopia, bilateral Catrachito Hinton M.D. 09/19/2019 Z96.1 Presence of intraocular lens Catrachito Hinton M.D. 08/29/2019 H25.811 Combined forms of age-related cataract, [...] Hinton M.D. at Catrachito Hinton MD, 09/26/2019 10:00 am - Catrachito Hinton M.D. at Catrachito Hinton MD, 09/25/2019 7:00 am - Catrachito Hinton M.D. at Catrachito Hinton MD, 2019 - Catrachito Hinton M.D.H25.812 Combined forms of age-related cataract, left eyeComments:Smoking can increase the risk of developing or worsening any eye related disease, as well as affect your overall health. If you are a smoker , we strongly recommend that you quit.If you are not a smoker, we strongly recommend that you do not start. Dense cataract in the left eye.Follow up:For surgery. Please keep post op appointments as scheduled.H44.23 Degenerative myopia, qiasffanxL11.1 Presence of intraocular lensComments:The artifical lens implant in your right eye appears to be stable. Since this is the first day after surgery, your right eye is still dilated and the vision will still be slightly blurry. The dilation will go down over the next day or two. Continue taking your eye drops as directed on the surgical calendar. If you have any questions, please call our office. Functional Status Description No Information Available Mental Status Description No Information Available Referrals Description No Information Available
[2019-10-09 20:11] LABS: ABS Lymphocytes 1.4 10^3/ul (1.0-4.8); ABS Monocytes 0.5 10^3/ul (0-0.8); ABS Neutrophils 7.1 10^3/ul (1.5-7.7); Eosinophil % 0.2 %; Hematocrit 39 % (35-47); Hemoglobin 13.6 g/dL (12.0-16.0); Lymphocyte % 14.9 %; Mean Corpuscular HGB Conc 35 g/dL (31-36); Mean Corpuscular Hemoglobin 31 pg (27-31); Mean Corpuscular Volume 91 fL (80-97); Mean Platelet Volume 10.6 fL (7.4-10.4); Nucleated Red Blood Cells % 0.1; Platelet Count 174 10^3/uL (150-450); Red Blood Count 4.32 10^6 /uL (3.70-4.87); Red Cell Distribution Width 14 % (10-15); White Blood Count 9.1 10^3/uL (3.5-10.8)
[2019-10-09 20:28] LABS: ALT 17 U/L (7-52); AST 20 U/L (13-39); Albumin 4.3 g/dL (3.2-5.2); Albumin/Globulin Ratio 1.5 (1-3); Alkaline Phosphatase 47 U/L (34-104); Anion Gap 11 mmol/L (2-11); Blood Urea Nitrogen 18 mg/dL (6-24); C Reactive Protein < 1.00 mg/L (<8.01); CO2 Carbon Dioxide 23 mmol/L (22-32); Calcium 9.6 mg/dL (8.6-10.3); Chloride 103 mmol/L (101-111); EGFR African American 68.4 (>60); EGFR Non-African American 56.6 (>60); Globulin 2.8 g/dL (2-4); Glucose 106 mg/dL (70-100); Potassium 3.6 mmol/L (3.5-5.0); Sodium 137 mmol/L (135-145); Total Protein 7.1 g/dL (6.4-8.9)
[2019-10-09] MEDS ORDERED: Tamsulosin CAP* 0.4 MG PO ONE (22:14)
[2019-10-09] MEDS ORDERED: oxyCODONE/Acetamin 5/325 MG* TAB PO ONE ×2 (22:14→23:43)
[2019-10-09 22:48] LABS: Urine Appearance Cloudy; Urine Bilirubin Negative (Negative); Urine Blood Negative (Negative); Urine Color Yellow; Urine Glucose Negative (Negative); Urine Ketones 1+ (Negative); Urine Nitrite Negative (Negative); Urine Protein Negative (Negative); Urine Specific Gravity 1.019 (1.010-1.030); Urine Urobilinogen Negative (Negative)
[2019-10-09] MEDS ORDERED: Ondansetron ODT TAB* 4 MG PO ONE (23:44)
[2019-10-10 01:16] VITALS: BP 104/56
== END 2019-10-10 00:55 | disposition home or self-care (01) ==
LOC: ED 19:44
DX: N20.0 Calculus of kidney (principal); E03.9 Hypothyroidism, unspecified; Z85.820 Personal history of malignant melanoma of skin; Z87.891 Personal history of nicotine dependence; Z79.890 Hormone replacement therapy; Z79.899 Other long term (current) drug therapy; Z88.2 Allergy status to sulfonamides
CPT/HCPCS: 36415; 74176; 80053; 81003; 83605; 83690; 85025; 86140; 96361; 96374; 96375; 99285; A9270-GY; J1885; J2270; J2405

== ENCOUNTER → 2019-10-10 15:17 | Day surgery (SDC) | payer BC ==
[~2019-10-10 15:17] MED LIST changes: -Acetaminophen TAB* 325 MG PO PRN; +Dexamethasone TAB* 4 MG ONE; +Dexamethasone TAB* 4 MG PO ONE; +DiMENhydriNATE IV* 50 MG/ML VIAL IV PUSH PRN; +Famotidine IV* 10 MG/ML 2 ML (20 mg) IV ONE; +Famotidine IV* 10 MG/ML 2 ML (20 mg) ONE; +HYDROmorphone INJ1* 1 MG/ML SYRINGE IV PRN; +Iohexol 180 (CONTRAST) 10 ML SDV IV ONE; +KETAMINE HCL* 50 MG/ML 10 ML VIAL ONE; +Ketorolac INJ* 30 MG/ML 1 ML VIAL ONE; +Lactated Ringers 1000 ML Bag* 1,000 ML IV SCH; +Lidocaine 2% PF * 5 ML VIAL ONE; +Midazolam* 1 MG/ML 5 ML VIAL (5 MG) ONE; +Naloxone* 0.4 MG/ML 1 ML VIAL IV PRN; +Ondansetron ODT TAB* 4 MG ONE; +Ondansetron ODT TAB* 4 MG PO ONE; +PROCHLORPERAZINE INJ 5 MG/ML 2 ML VIAL IV PRN; +Phenylephrine 40 MCG/ML SYRINGE ONE; +Propofol* 10 MG/ML 20 ML BTL ONE; +cefTRIAXone(*) 2 GM ADDV.VIAL IVPB ONE; +fentaNYL* 50 MCG/ML 2 ML VIAL (100 MCG VIAL) IV PRN; +fentaNYL* 50 MCG/ML 2 ML VIAL (100 MCG VIAL) ONE; +oxyCODONE TAB* 5 MG TAB PO PRN
--- NOTE | 2019-10-10 15:30 | HP ---
CC: Dr. Al Newsome DATE OF ADMISSION AND SURGERY: 10/10/2019. HISTORY OF PRESENT ILLNESS: Ms. Lo is a 59-year-old, white female who is admitted with left renal colic, proximal left ureteral calculus, for cystoscopy and insertion of left ureteral stent. Ms. Lo was doing fine until last night when she developed sudden onset of severe left flank pain. It was associated with nausea and some vomiting. She did not have any fever or chills. Because of the severity of the pain, she went to the emergency room by ambulance where she was evaluated by the emergency room staff. Her urine analysis was positive for blood, negative for infection. Her vital signs were normal. Noncontrast CT of the abdomen and pelvis showed an 8 mm calculus at the left ureteropelvic junction associated with moderate left hydronephrosis. No other abnormalities were noted. The patient was managed with pain medication and IV fluid, and she did fine. She was discharged to home on those medications and was referred to my office for management. The patient has continued to have on and off pain and some nausea. I saw her in my office today, and because of the above history, the severity of the pain, and the size and the location of the stone, she will be taken to the operating room for urgent placement of a left ureteral stent in preparation for definitive treatment of the stone. Past history is completely negative. No past history of any renal disease or calculi and no history of any urinary tract infections or voiding dysfunction. [employer] history is relevant for two sections. She has not had any other pelvic surgeries. PAST MEDICAL HISTORY AND SYSTEM REVIEW: She is hypothyroid, on replacement. She is on estrogen replacement therapy. She denies any cardiac or pulmonary disease or symptoms. MEDICATIONS: The patient is on multiple supplements, the list of which is included in her chart. ALLERGIES: She reports being ALLERGIC TO SULFA DRUGS. FAMILY HISTORY: Relevant for a brother who had renal calculus disease. SOCIAL HISTORY: She is a nonsmoker. Denies any alcohol or drug intake. Mental history is negative. PHYSICAL EXAMINATION GENERAL: Pleasant, rather pale-looking, white female who is in moderate pain. VITAL SIGNS: Blood pressure 120/80, pulse 70, temperature 97.6. LUNGS: Clear. HEART: Regular and rhythmic, no murmurs. ABDOMEN: Soft. There is mild tenderness on percussion in the left lower flank. IMPRESSION: Left renal colic secondary to an 8 mm calculus at the left ureteropelvic junction associated with moderate left hydronephrosis. PLAN: Cystoscopy and insertion of left ureteral stent. A KUB will be obtained postoperatively and if the calculus is radiopaque, the patient will be scheduled for shockwave lithotripsy of the left renal calculus. [id number]/[facility] #: [id number] MTDD
[2019-10-10 18:42] LABS: Activated Partial Thrombo Time 23.9 seconds (26.0-38.0); INR 1.01 (0.82-1.09)
[2019-10-10 20:31] VITALS: BP 117/65
--- NOTE | 2019-10-11 02:00 | OP ---
DATE OF OPERATION: 10/10/19 - [facility] DATE OF : 58 SURGEON: Sly Whitley MD ANESTHESIOLOGIST: Dr. Patrice Messina. ANESTHESIA: General. PRE-OP DIAGNOSES: 1. Left ureteral calculus. 2. Left renal colic due to above. POST-OP DIAGNOSES: 1. Left ureteral calculus. 2. Left renal colic due to above. OPERATIVE PROCEDURE: 1. Cystoscopy. 2. Left retrograde pyelography. 3. Insertion of left ureteral stent (6-Qatari). INDICATIONS: Ms. Lo is a 59-year-old white female who presented to the emergency room last night with symptoms of left renal colic. She had no fever or chills. Non-contrast CT of the abdomen and pelvis showed 7 mm calculus at the level of the left ureteropelvic junction associated with moderate left hydronephrosis. Because of the above history and persistent pain, patient was advised placement of a left ureteral stent in preparation for definitive treatment of the stone. PATHOLOGY: At fluoroscopy, there was a radiopaque calculus noted in the area of the proximal ureter. At cystoscopy, the bladder wall looked normal. No suspicious bladder lesions were seen. The ureteral orifices looked normal. Following placement of the guidewire and the open-ended catheter inside the collecting system, there was a brisk efflux of concentrated looking urine from the kidney. Retrograde pyelography showed mild hydronephrosis. Fluoroscopy after the placement of the stent showed that the stone had migrated into the area of the renal pelvis. DESCRIPTION OF PROCEDURE: After successful general anesthesia, the patient was placed in the lithotomy position and was prepped and draped for cystoscopy. Cystoscopy was performed. The bladder was inspected and the findings in the bladder and at fluoroscopy were noted. A flexible tip guidewire was then introduced into the left orifice and was passed beyond the stone into the collecting system. The stone was seen migrating up into the renal pelvis with the guidewire. A size 5-Qatari open- ended catheter was then fed on top of the guidewire and positioned in the renal pelvis. Brisk diuresis was noted from the left orifice. Retrograde pyelography was then performed. The guidewire was reintroduced in the left ureter. A size 6-Qatari stent was then placed over the guide wire, with the proximal end coiling in the renal pelvis and the distal end coiling inside the bladder. There was good drainage of contrast from the kidney and no extravasation. The patient tolerated the procedure well and left the operating room in good condition. The plan is to obtain a KUB before the patient's discharge today. If the calculus can be visualized on KUB, the patient will be scheduled for shockwave lithotripsy at a later date. [id number]/[facility] #: [id number] MTDD
== END | disposition home or self-care (01) ==
LOC: OR 15:17
PROVIDERS: ATTEND Urology
DX: N13.2 Hydronephrosis with renal and ureteral calculous obstruction (principal); E03.9 Hypothyroidism, unspecified
CPT/HCPCS: 36415; 74018; 74420; 85610; 85730; A9270-GY; C1876; J0696; J1885; J2250; J2704; J3010; J8540

== ENCOUNTER 2019-10-14 10:10 | Day surgery (SDC) | payer BC ==
--- NOTE | 2019-10-12 13:48 | HP ---
INTERVAL PHYSICAL AND HISTORY NOTE: DATE OF PLANNED ADMISSION AND SURGERY: 10/14/19 HISTORY OF PRESENT ILLNESS: Please refer to my detailed history and physical for her admission on 10/10/19 Ms. Lo had symptoms of left renal colic and she presented to the emergency room on 10/09/19. Non-contrast CT of the abdomen and pelvis showed a moderately obstructing 7 mm calculus at the left ureteropelvic junction. After pain control and hydration, she was taken the next morning to the operating room and had a cystoscopy and insertion of left ureteral stent. There has not been any changes in her general medical condition. She is still on the same medications. The patient is now admitted for shockwave lithotripsy of the left renal calculus and if there is good fragmentation of the stone for cystoscopy and removal of the left ureteral stent. I discussed the above plans in detail with the patient and all her questions were answered. [id number]/[facility] #: [id number] MTDD
[~2019-10-14 10:10] MED LIST changes: +Acetaminophen TAB* 325 MG PO ONE; -Dexamethasone TAB* 4 MG ONE; -Dexamethasone TAB* 4 MG PO ONE; -DiMENhydriNATE IV* 50 MG/ML VIAL IV PUSH PRN; -Famotidine IV* 10 MG/ML 2 ML (20 mg) ONE; -HYDROmorphone INJ1* 1 MG/ML SYRINGE IV PRN; -Iohexol 180 (CONTRAST) 10 ML SDV IV ONE; -KETAMINE HCL* 50 MG/ML 10 ML VIAL ONE; -Ketorolac INJ* 30 MG/ML 1 ML VIAL ONE; -Lidocaine 2% PF * 5 ML VIAL ONE; -Midazolam* 1 MG/ML 5 ML VIAL (5 MG) ONE; +NS 0.9% 1000 ML** 1,000 ML IV SCH; -Naloxone* 0.4 MG/ML 1 ML VIAL IV PRN; -Ondansetron ODT TAB* 4 MG ONE; -Ondansetron ODT TAB* 4 MG PO ONE; -PROCHLORPERAZINE INJ 5 MG/ML 2 ML VIAL IV PRN; -Phenylephrine 40 MCG/ML SYRINGE ONE; -Propofol* 10 MG/ML 20 ML BTL ONE; -cefTRIAXone(*) 2 GM ADDV.VIAL IVPB ONE; -fentaNYL* 50 MCG/ML 2 ML VIAL (100 MCG VIAL) IV PRN; -fentaNYL* 50 MCG/ML 2 ML VIAL (100 MCG VIAL) ONE; -oxyCODONE TAB* 5 MG TAB PO PRN
[2019-10-14] MEDS ORDERED: Acetaminophen TAB* 325 MG ONE (10:24)
[2019-10-14] MEDS ORDERED: cefTRIAXone(*) 1 GM ADVAN/BAG ONE ×2 (10:24→11:09)
[2019-10-14] MEDS ORDERED: Famotidine IV* 10 MG/ML 2 ML (20 mg) ONE (10:24)
[2019-10-14] MEDS ORDERED: DiMENhydriNATE IV* 50 MG/ML VIAL IV PUSH PRN (11:03)
[2019-10-14] MEDS ORDERED: fentaNYL* 50 MCG/ML 2 ML VIAL (100 MCG VIAL) IV PRN (11:03)
[2019-10-14] MEDS ORDERED: Naloxone* 0.4 MG/ML 1 ML VIAL IV PRN (11:03)
[2019-10-14] MEDS ORDERED: Ondansetron INJ* 2 MG/ML VIAL IV PRN (11:03)
[2019-10-14] MEDS ORDERED: HYDROcodone/ACETAMIN 5-325 MG* 1 TAB PO PRN (11:03)
[2019-10-14] MEDS ORDERED: fentaNYL* 50 MCG/ML 2 ML VIAL (100 MCG VIAL) ONE (12:07)
[2019-10-14] MEDS ORDERED: Midazolam* 1 MG/ML 2 ML VIAL (2 MG) ONE (12:08)
[2019-10-14] MEDS ORDERED: Lidocaine 2% PF * 5 ML VIAL ONE (12:08)
[2019-10-14] MEDS ORDERED: Ondansetron INJ* 2 MG/ML VIAL ONE (12:23)
[2019-10-14] MEDS ORDERED: Propofol* 10 MG/ML 20 ML BTL ONE (12:23)
[2019-10-14] MEDS ORDERED: Dexamethasone IV* 4 MG/ML 1 ML (4 MG) ONE (12:23)
[2019-10-14 14:15] VITALS: BP 115/62
--- NOTE | 2019-10-15 03:15 | OP ---
CC: Dr. Al Newsome * DATE OF OPERATION: 10/14/19 - [facility] DATE OF : 58 SURGEON: Sly Whitley MD ANESTHESIOLOGIST: Dr. Casey Ahuja. ANESTHESIA: General. PRE-OP DIAGNOSES: 1. Left renal calculus. 2. Status post placement of left ureteral stent. POST-OP DIAGNOSES: 1. Left renal calculus. 2. Status post placement of left ureteral stent. OPERATIVE PROCEDURE: Shockwave lithotripsy of left renal calculus. INDICATION FOR PROCEDURE: Ms. Lo is a 59-year-old white female who presented to the emergency room about 4 days ago with symptoms of left renal colic, and was noted on noncontrast CT of the abdomen and pelvis to have a 7 mm calculus at the left ureteropelvic junction. She had placement of a left ureteral stent the following day. Postoperative KUB did not clearly show the stone. The patient is taken to the operating room for fluoroscopy and if the calculus is identified to proceed with shockwave lithotripsy. PATHOLOGY: Fluoroscopy on the operating room table before the initiation of anesthesia showed a 6 to 7 mm calculus adjacent to the upper coil of the left ureteral stent. No other abnormal calcifications were noted. DESCRIPTION OF PROCEDURE: The patient was brought to the operating room and was placed on the shockwave lithotripsy table. The anesthesia was not given. Fluoroscopy was performed and the calculus was identified as described above. The patient was then placed under general anesthesia. IV ceftriaxone was given. The left renal calculus was then visualized in both the PA and the oblique x-ray views and the position of the generator and of the patient was adjusted to have the stone in the focus of the shock waves. A total of 1,500 shocks were then delivered at a rate of 60 shocks per minute. The maximum energy used was 6. At the completion of the treatment, there was very good fragmentation of the stone. The patient tolerated the procedure well and left the operating room in good condition. The stent was not removed at this time because it has been in place only for 3 days. We will await another 3 days to allow the passive dilatation of the ureter and the stent will be removed and I expect the stone fragments to pass spontaneously and without difficulty. [id number]/[facility] #: [id number] [facility]ero
== END 2019-10-14 14:17 | disposition home or self-care (01) ==
LOC: OR 10:10
PROVIDERS: ATTEND Urology
DX: N20.0 Calculus of kidney (principal); E03.9 Hypothyroidism, unspecified; M54.5 Low back pain
CPT/HCPCS: 74018; A9270-GY; J0696; J1100; J2250; J2405; J2704; J3010